=== PATIENT | female | born 1980 | race Caucasian/White ===

== ENCOUNTER 2016-09-18 10:16 | Emergency (ER) | payer OTHER ==
[~2016-09-18] VITALS: Ht 177.8 cm; Wt 67.7 kg
[~2016-09-18 10:16] MED LIST: ACET-1311 PO; MTR600X PO; [UNRECOGNIZED DRUG - OTHER] PO
[2016-09-18 10:19] VITALS: TEMP 36.7; Ht 177.8 cm; Wt 67.7 kg
[2016-09-18] MEDS ORDERED: BCPILLS PO (10:46)
[2016-09-18] MEDS ORDERED: LEVO50TA PO (10:46)
[2016-09-18] MEDS ORDERED: AMPH10TA2 PO (10:46)
[2016-09-18] MEDS ORDERED: CETI10TA10 PO (10:46)
--- NOTE | 2016-09-18 12:02 | DIAGNOSTIC IMAGING REPORT ---
CT HEAD WITHOUT CONTRAST (CT) CLINICAL HISTORY: Headache, dizziness, hearing loss. COMPARISON STUDY: No previous studies for comparison. TECHNIQUE: Axial CT of the brain is performed from the vertex to the skull base. IV contrast was not administered for this examination. CT DOSE: 537.48 mGy.cm FINDINGS: No intra or extra-axial mass lesions are visualized. There is no CT evidence of acute cortical infarction. There is no evidence of midline shift. There is no acute hemorrhage. No calvarial fractures are visualized. There is no evidence of pathologic ventricular dilatation. There is no evidence of acute sinusitis IMPRESSION: Normal noncontrast head CT. Electronically signed by: Hira Carty M.D. 09/18/2016 12:00 PM Dictated Date/Time: 09/18/2016 11:59 AM
[2016-09-18] MEDS ORDERED: MECL1TAB42 PO (12:15)
--- NOTE | 2016-09-18 12:16 | EMERGENCY ROOM VISIT NOTE ---
History First contact with patient: 10:27 Chief Complaint: HEARING LOSS Stated Complaint: SUDDEN HEARING LOSS IN LEFT EAR History of Present Illness The patient is a 36 year old female who presents to the Emergency Room with complaints of complete hearing loss in her left ear. The patient states that her symptoms started one week ago with severe vertigo and hearing loss in the left ear. The patient saw her PCP last week and was placed on Nasacort for possible eustachian tube dysfunction. The patient states that her dizziness has resolved but she gets daily headaches and has persistent complete hearing loss out of the left ear. She went to her PCP again yesterday and they put in a referral to ENT but she does not have an appointment until September 29. The patient states that she is concerned because her has been looking on the Internet and was told that unilateral hearing loss is a medical emergency which is why they came to the emergency room today. The patient denies any visual changes or dizziness today. The patient denies any nausea or vomiting. She currently does not have a headache. The patient denies any recent URI symptoms of ear pain, head congestion, sore throat, cough or fever. The patient has never had these symptoms before. Past Medical/Surgical History Medical Problems: (1) DELIVER-SINGLE LIVEBORN (2) R/O labor (3) Vaginal delivery Lj's ADHD Social History Smoking Status: Never Smoker Smokeless Tobacco Use: No Alcohol Use: occasionally Drug Use: none Marital Status: Housing Status: lives with family Occupation Status: employed Current/Historical Medications Scheduled Amphetamine-Dextroamphetamine 10MG (Adderall 10MG), 10 MG PO BID Control Pills ( Control Pills), 1 TAB PO DAILY Cetirizine Hcl (Zyrtec), 10 MG PO DAILY Levothyroxine Sodium (Synthroid), 50 MCG PO DAILY Allergies Coded Allergies: Erythromycin (Unverified Allergy, Intermediate, FACIAL SWELLING, 09/18/16) Physical Exam Vital Signs Date Time Temp Pulse Resp B/P Pulse Ox O2 Delivery O2 Flow Rate FiO2 09/18/16 10:19 36.7 96 18 122/75 100 Room Air Physical Exam PHYSICAL EXAM: Vital Signs were reviewed: Reviewed Nurse's notes and agree. GENERAL: 36-year-old female appears in no acute distress. MENTAL STATUS: Alert, oriented, coherent. EARS: Canals clear. TMs good light reflex, no erythema or fluid level noted. NOSE: Nasal mucosa without erythema or engorgement. PHARYNX: No erythema, no edema noted. No exudate noted. Airway is adequate. NECK: Supple , non-tender. No lymphadenopathy noted. LUNGS: Clear to auscultation without wheezes rales or rhonchi. CARDIAC: Regular rate and rhythm without murmur. SKIN : No rashes noted. Medical Decision & Procedures ER Provider Diagnostic Interpretation: CT HEAD WITHOUT CONTRAST (CT) CLINICAL HISTORY: Headache, dizziness, hearing loss. COMPARISON STUDY: No previous studies for comparison. TECHNIQUE: Axial CT of the brain is performed from the vertex to the skull base. IV contrast was not administered for this examination. CT DOSE: 537.48 mGy.cm FINDINGS: No intra or extra-axial mass lesions are visualized. There is no CT evidence of acute cortical infarction. There is no evidence of midline shift. There is no acute hemorrhage. No calvarial fractures are visualized. There is no evidence of pathologic ventricular dilatation. There is no evidence of acute sinusitis IMPRESSION: Normal noncontrast head CT. Electronically signed by: Hira Carty M.D. 09/18/2016 12:00 PM ED Course The patient was evaluated. I spoke with case management about possibly trying to get an MRI approval to evaluate for acoustic neuroma. They could not get preauthorization for the MRI through the emergency room therefore a CT of the head was ordered and evaluated by the radiologist as above without any acute findings. The patient was independently evaluated by Dr. Peace who agreed with treatment plan. The patient was discharged home in stable condition. Medical Decision Differential diagnosis include acute labyrinthitis, acoustic neuroma, neoplasm, cerumen impaction, eustachian tube dysfunction Impression Primary Impression: Hearing loss in left ear Additional Impression: Dizziness Departure Information Dispostion Home / Self-Care Condition GOOD Prescriptions Meclizine Hcl (MECLIZINE HCL) 25 Mg Tab 1 TAB PO TID Y for Dizziness or Vertigo for 10 Days, #30 TAB Prov: Mallorie Gardner PA-C 09/18/16 Referrals Travis Quarles M.D.(PAUL) (PCP) Forms HOME CARE DOCUMENTATION FORM, IMPORTANT VISIT INFORMATION, WORK / SCHOOL INSTRUCTIONS Patient Instructions A Signature Page, Dizziness Vertigo Inner Ear, [facility], Later [facility] Additional Instructions Keep scheduled appointment with ENT on September 29. Take meclizine as needed for dizziness. If symptoms worsen, follow-up with your family physician or return to ER.
[2016-09-18 12:29] VITALS: BP 133/87; PULSE 89; O2SAT 100
== END 2016-09-18 12:29 | disposition home or self-care (01) ==
LOC: C.EDB 10:17 → C.EDA 12:29
DX: H91.92 Unspecified hearing loss, left ear (principal); R42 Dizziness and giddiness; E06.3 Autoimmune thyroiditis; F90.9 Attention-deficit hyperactivity disorder, unspecified type